=== PATIENT | male | born 1985 | race Caucasian/White ===

== ENCOUNTER 2019-05-14 12:57 | Emergency (ER) | payer SELFPAY ==
[2019-05-14 13:00] VITALS: BP 168/103; PULSE 105; RESP 17; TEMP 37; O2SAT 97; BMI 28.8
--- NOTE | 2019-05-14 13:05 | XR_ITS ---
WS: [id number] XR chest 1V portable [id number] REASON FOR EXAM: cough FINDINGS: The heart and mediastinal interfaces were normal. There is increased markings with peribronchial areas consistent with chronic inflammatory changes. There was no definite pneumonia, pleural effusion, pulmonary edema or mass effect. The hilum and apices are normal. XR/XR chest 1V portable 15902 IMPRESSION: Increased markings in both lung saxena suggesting bronchitis.
--- NOTE | 2019-05-14 13:06 | ECG_ITS ---
Measurements Intervals [place] Rate: 114 P: 59 ME: 104 QRS: 73 QRSD: 89 T: -35 QT: 311 QTc: 428 SINUS TACHYCARDIA WITH SHORT ME INTERVAL MODERATE T-WAVE ABNORMALITY, CONSIDER LATERAL ISCHEMIA [-0.1+ mV T WAVE IN I/a I/aVL/V5/V6] MODERATE T-WAVE ABNORMALITY, CONSIDER INFERIOR ISCHEMIA [-0.1+ mV T WAVE IN II II/aVF] No previous ECG available for comparison Electronically Signed On 05-14-2019 16:58:25 UNDERWRITING ANALYST by Armin Shaffer M.D. [email or web address]
--- NOTE | 2019-05-14 13:08 | ED_ITS ---
Entered by Danyell Sanon, acting as scribe for Jennifer Conner HPI - Chest Pain General: Chief Complaint: Chest Pain Stated Complaint: cp, hands tingling Time Seen by Provider: 05/14/19 13:06 Source: patient Mode of arrival: ambulatory Limitations: no limitations History of Present Illness: HPI narrative: 34 yo Male presents to ED with complaint of chest pain. Pt states that he has had a constant pressure in his chest for a couple of days. Pt states that today he is having a pinching type feeling especially when he gets up and exerts himself. Pt states that if he lays around the pressure pretty well goes away. Pt states that he has been having sweating episodes and had some nausea yesterday. Pt states that he has been having pins and needles tingling in his bilateral forearms. MD complaint: chest pain Onset (ago): day(s) Timing of current episode: episodic and still present Prior episodes: Yes Onset: during rest and during exertion Pain location: substernal Pain radiation: right arm and left arm Quality: other (pressure) Relieving factors: rest Exacerbating factors: exertion and movement Associated symptoms: Reports nausea; Deny abdominal pain, diaphoresis, dyspnea, fever(s), syncope or vomiting Treatment prior to arrival: none Review of Systems General: Reports: other (negative unless marked) Const: Denies: fever, chills, body aches, fatigue, malaise or diaphoresis Eyes: Denies: change in vision or blurry vision ENMT: Denies: throat pain, painful swallowing, hoarseness, ear pain, ear discharge, Change in hearing or nasal discharge Card: Reports: chest pain; Denies: syncope Resp: Denies: shortness of breath, productive cough, non-productive cough, wheezing, coughing up blood or chest congestion GI: Reports: nausea; Denies: abdominal pain or vomiting Musc: Denies: neck pain, back pain, extremity pain, extremity swelling, joint pain, joint swelling, joint warmth or joint stiffness Skin/Breast: Denies: rash, skin tenderness or yellow skin Neuro: Denies: headache, numbness in extremities, weakness in extremities, changes in sensation, lack of coordination, difficulty walking, dizziness, vertigo or confusion Endo: Denies: excessive thirst, tired all the time, cold intolerance, excessive sweating, flushing or hot flashes Nima/Lymph: Denies: easy bruising, easy bleeding, petechiae or enlarged lymph nodes All/Imm: Denies: hives, throat swelling, tongue swelling, facial swelling or acute wheezing PFSH ED PFSH: Social History Smoking and tobacco status: current every day smoker Physical Exam Const: COMMON NORMALS: no apparent distress, oriented x3, no limitations, healthy appearing and well nourished EXAM LIMITATIONS: no altered mental status GENERAL APPEARANCE: cooperative, well kempt and well developed ORIENTATION/CONSCIOUSNESS: Yes awake HENMT: COMMON NORMALS: normocephalic, head/scalp atraumatic, hearing grossly normal bilaterally, external ears normal, EAC's normal, external nose normal and moist oral mucous membranes HEAD & SCALP: normal to inspection, normocephalic and atraumatic FACE & SINUS: normal facial exam and face symmetric NOSE: external nose normal and nares normal EXTERNAL EAR: Yes external ears normal EXTERNAL AUDITORY CANAL: EAC's normal MOUTH: oral and palatal mucosa normal and tongue normal Eye: COMMON NORMALS: PERRL, EOMs intact bilaterally, conjunctivae normal and no scleral icterus GENERAL EYE: normal appearance of both eyes and normal light reflex CONJUNCTIVA: Yes conjunctivae normal SCLERA: sclerae normal CORNEA: Yes corneas normal PUPIL: Yes PERRL DIRECT OPHTHALMOSCOPY: Yes normal light reflex Neck/C-Spine: COMMON NORMALS: full ROM, no lymphadenopathy, supple, no meningeal signs and no JVD GENERAL: Yes normal visual inspection and Yes trachea midline CERVICAL SPINE: Yes cervical ROM normal Chest: COMMONS NORMALS: inspection of chest normal and palpation of chest normal Resp: COMMON NORMALS: normal respiratory effort, no retractions, no use of accessory muscles and clear to auscultation bilaterally EFFORT & INSPECTION: Yes able to speak in complete sentences AUSCULTATION: clear to auscultation bilaterally Cardio: COMMON NORMALS: no JVD, regular rate, regular rhythm, S1 normal heart sound, S2 normal heart sound, no gallops, no clicks, no murmurs and no rub JUGULAR VENOUS DISTENTION: no JVD RATE: regular rate RHYTHM: regular rhythm HEART SOUNDS: S1 normal and S2 normal GI: COMMON NORMALS: soft to palpation, non-tender, no hepatosplenomegaly and no masses INSPECTION: Yes normal to inspection PALPATION: Yes soft and Yes no hepatosplenomegaly : BLADDER/KIDNEY EXAM: Yes no CVA tenderness Back/Pelvis: COMMON NORMALS: no CVA tenderness, thoracic and lumbar spine normal to inspection, no thoracic nor lumbar tenderness and thoraco-lumbar ROM normal Extremity: COMMON NORMALS: normal to inspection, full ROM, normal capillary refill, no joint enlargement, no clubbing, cyanosis or edema and no calf tenderness Neuro: COMMON NORMALS: oriented x3, CN's II-XII intact bilaterally, moves all extremities, no focal motor deficits and no sensory deficits noted MENINGEAL SIGNS: Yes no meningeal signs Psych: COMMON NORMALS: mental status grossly normal, thought process normal, cooperative, affect normal, speech normal and activity/motor behavior normal APPEARANCE: Yes well kempt SPEECH: Yes normal speech THOUGHT PROCESS: normal thought process Skin: COMMON NORMALS: no rashes or lesions noted, skin turgor normal, no jaundice, no petechiae and no mottling GENERAL SKIN EXAM: no rashes or lesions noted and turgor normal Course Consultations: Consultation #1: Dr. White, Virologist Time: 14:30 Vital Signs: Vital signs: Vital Signs Temperature 98.6 F 05/14/19 13:00 Pulse Rate 105 H 05/14/19 13:00 Respiratory Rate 17 05/14/19 13:00 Blood Pressure 168/103 05/14/19 13:00 Pulse Oximetry 97 05/14/19 13:00 MDM - Chest Pain MDM Narrative: Medical decision making narrative: Ck is a 34-year-old male who comes in with constant chest pressure for the past 2 days. Today he came in for pinching in his chest. Patient has no risk factors for heart disease other than being a smoker and a family history. His heart score is a 3. On his third EKG his T waves have improved but not completely normalized. I did review the case with Dr. White who suggested admission because of this. The patient also has an elevated lactate and a chest x-ray that is concerning for bronchitis. The patient states he does have a cough productive of sputum but he assumed that this was just his smoker's cough. As he is refusing to stay at this time I will place him on antibiotics for possible systemic infection, most likely a bronchitis. Dr. White agrees we see no evidence of myopericarditis or pericarditis. I have informed the patient that he is young but because of his significant T wave inversions I recommend he stay in the hospital for stress t esting but he refuses. He understands any type of heart problem could be life- threatening but despite this he wants to be discharged. He agrees to return should his symptoms change or worsen. The patient was warned but he was welcomed to return. The patient did not improve with nitroglycerin here. Lab Data: Attestation: I reviewed the patient's lab results. Labs: Lab Results 05/14/19 05/14/19 05/14/19 Range/Units 13:27 13:27 13:27 WBC 14.9 H (4.0-10.0) 10^3/ uL RBC 5.55 H (4.1-5.3) 10^6/u L Hgb 16.7 H (11.7-16.6) g/dL Hct 49.8 (42.0-52.0) % MCV 89.7 (80-94) fL MCH 30.1 (28.0-34.0) pg MCHC 33.5 (30.0-36.0) g/dL RDW 13.1 (12.1-15.1) % Plt Count 250 (130-400) 10^3/c mm MPV 11.6 H (7.4-10.4) fL Neut % (Auto) 68.2 % Lymph % (Auto) 23.2 % Gallia % (Auto) 6.6 % Eos % (Auto) 0.4 % Baso % (Auto) 0.5 % Neut # (Auto) 10.2 H (1.8-7.7) 10^3/u L Lymph # (Auto) 3.5 (0.8-4.8) 10^3/u L Gall[place] # (Auto) 1.0 H (0.2-0.9) 10^3/u L Eos # (Auto) 0.1 (0.0-0.8) 10^3/u L Baso # (Auto) 0.1 (0.0-0.1) 10^3/u L Nucleated RBC % (a uto) 0 % Nucleated RBCs # 0.0 /100WBC D-Dimer (0-0.59) ug/mIFE U Sodium 136 (136-145) mmol/L Potassium 3.9 (3.5-5.1) mmol/L Chloride 97 L (98-107) mmol/L Carbon Dioxide 24 (22-29) mmol/L Anion Gap 18.9 (5-19) BUN 10 (6-20) mg/dL Creatinine 0.9 (0.7-1.2) mg/dL GFR Calculation 96.6 (90-130) mL/min Glucose 106 (65-115) mg/dL Lactic Acid 3.4 H (0.5-2.2) mmol/L Lactic Acid (Sepsi s) (0.5-2.2) mmol/L Calcium 10.1 (8.5-10.5) mg/dL Magnesium 1.9 (1.7-2.3) mg/dL Total Bilirubin 0.5 (0.15-1.2) mg/dL AST 51 H (0-40) U/L ALT 106 H (0-41) U/L Alkaline Phosphata se 101 (40-130) IU/L Troponin T Baselin e (0-15) ng/mL Troponin T 120 Min [place] (0-15) ng/mL NT-Pro-B Natriuret Pep 5 (0-125) pg/mL Total Protein 7.7 (6.6-8.7) g/dL Albumin 4.7 (3.5-5.2) g/dL Globulin 3.0 (1.3-4.6) g/dL Lipase 12 L (13-60) U/L TSH (0.27-4.20) uIU/ mL Urine Color (Yellow) Urine Appearance (CLEAR) Urine pH (5-7) Ur Specific Gravit y (1.005-1.030) Urine Protein (Negative) Urine Glucose (UA) (Normal) Urine Ketones (Negative) Urine Blood (Negative) Urine Nitrate (Negative) Urine Bilirubin (NEGATIVE) Urine Urobilinogen (Negative) mg/dL Ur Leukocyte Meggan ase (Negative) Urine RBC (0-2) /hpf Urine WBC (0-5) /hpf Ur Squamous Epith Cells (0-5) Urine Bacteria (NONE) Urine Mucus Urine Opiates Scre en (Negative) ng/mL Ur Barbiturates Sc reen (Negative) ng/mL Ur Phencyclidine S crn (Negative) ng/mL Ur Amphetamines Sc reen (Negative) ng/mL U Benzodiazepines Scrn (Negative) ng/mL Urine Cocaine Scre en (Negative) ng/mL U Marijuana (THC) Screen (Negative) ng/mL Ethyl Alcohol < 10 (0-10) mg/dL Hepatitis A IgM Ab (Nonreactive) Hep Bs Antigen (Nonreactive) Hep B Core IgM Ab (Nonreactive) Hepatitis C Antibo dy (Nonreactive) Influenza Type A A g (Negative) POC Influenza B Ag (Negative) 05/14/19 05/14/19 05/14/19 Range/Units 13:27 13:27 13:27 WBC (4.0-10.0) 10^3/ uL RBC (4.1-5.3) 10^6/u L Hgb (11.7-16.6) g/dL Hct (42.0-52.0) % MCV (80-94) fL MCH (28.0-34.0) pg MCHC (30.0-36.0) g/dL RDW (12.1-15.1) % Plt Count (130-400) 10^3/c mm MPV (7.4-10.4) fL Neut % (Auto) % Lymph % (Auto) % [place] % (Auto) % Eos % (Auto) % Baso % (Auto) % Neut # (Auto) (1.8-7.7) 10^3/u L Lymph # (Auto) (0.8-4.8) 10^3/u L Gall[place] # (Auto) (0.2-0.9) 10^3/u L Eos # (Auto) (0.0-0.8) 10^3/u L Baso # (Auto) (0.0-0.1) 10^3/u L Nucleated RBC % (a uto) % Nucleated RBCs # /100WBC D-Dimer <= 0.27 (0-0.59) ug/mIFE U Sodium (136-145) mmol/L Potassium (3.5-5.1) mmol/L Chloride (98-107) mmol/L Carbon Dioxide (22-29) mmol/L Anion Gap (5-19) BUN (6-20) mg/dL Creatinine (0.7-1.2) mg/dL GFR Calculation (90-130) mL/min Glucose (65-115) mg/dL Lactic Acid (0.5-2.2) mmol/L Lactic Acid (Sepsi s) (0.5-2.2) mmol/L Calcium (8.5-10.5) mg/dL Magnesium (1.7-2.3) mg/dL Total Bilirubin (0.15-1.2) mg/dL AST (0-40) U/L ALT (0-41) U/L Alkaline Phosphata se (40-130) IU/L Troponin T Baselin e 6 (0-15) ng/mL Troponin T 120 Min [place] (0-15) ng/mL NT-Pro-B Natriuret Pep (0-125) pg/mL Total Protein (6.6-8.7) g/dL Albumin (3.5-5.2) g/dL Globulin (1.3-4.6) g/dL Lipase (13-60) U/L TSH 2.97 (0.27-4.20) uIU/ mL Urine Color (Yellow) Urine Appearance (CLEAR) Urine pH (5-7) Ur Specific Gravit y (1.005-1.030) Urine Protein (Negative) Urine Glucose (UA) (Normal) Urine Ketones (Negative) Urine Blood (Negative) Urine Nitrate (Negative) Urine Bilirubin (NEGATIVE) Urine Urobilinogen (Negative) mg/dL Ur Leukocyte Meggan ase (Negative) Urine RBC (0-2) /hpf Urine WBC (0-5) /hpf Ur Squamous Epith Cells (0-5) Urine Bacteria (NONE) Urine Mucus Urine Opiates Scre en (Negative) ng/mL Ur Barbiturates Sc reen (Negative) ng/mL Ur Phencyclidine S crn (Negative) ng/mL Ur Amphetamines Sc reen (Negative) ng/mL U Benzodiazepines Scrn (Negative) ng/mL Urine Cocaine Scre en (Negative) ng/mL U Marijuana (THC) Screen (Negative) ng/mL Ethyl Alcohol (0-10) mg/dL Hepatitis A IgM Ab (Nonreactive) Hep Bs Antigen (Nonreactive) Hep B Core IgM Ab (Nonreactive) Hepatitis C Antibo dy (Nonreactive) Influenza Type A A g (Negative) POC Influenza B Ag (Negative) 05/14/19 05/14/19 05/14/19 Range/Units 13:27 13:45 13:45 WBC (4.0-10.0) 10^3/ uL RBC (4.1-5.3) 10^6/u L Hgb (11.7-16.6) g/dL Hct (42.0-52.0) % MCV (80-94) fL MCH (28.0-34.0) pg MCHC (30.0-36.0) g/dL RDW (12.1-15.1) % Plt Count (130-400) 10^3/c mm MPV (7.4-10.4) fL Neut % (Auto) % Lymph % (Auto) % [place] % (Auto) % Eos % (Auto) % Baso % (Auto) % Neut # (Auto) (1.8-7.7) 10^3/u L Lymph # (Auto) (0.8-4.8) 10^3/u L [place] # (Auto) (0.2-0.9) 10^3/u L Eos # (Auto) (0.0-0.8) 10^3/u L Baso # (Auto) (0.0-0.1) 10^3/u L Nucleated RBC % (a uto) % Nucleated RBCs # /100WBC D-Dimer (0-0.59) ug/mIFE U Sodium (136-145) mmol/L Potassium (3.5-5.1) mmol/L Chloride (98-107) mmol/L Carbon Dioxide (22-29) mmol/L Anion Gap (5-19) BUN (6-20) mg/dL Creatinine (0.7-1.2) mg/dL GFR Calculation (90-130) mL/min Glucose (65-115) mg/dL Lactic Acid (0.5-2.2) mmol/L Lactic Acid (Sepsi s) (0.5-2.2) mmol/L Calcium (8.5-10.5) mg/dL Magnesium (1.7-2.3) mg/dL Total Bilirubin (0.15-1.2) mg/dL AST (0-40) U/L ALT (0-41) U/L Alkaline Phosphata se (40-130) IU/L Troponin T Baselin e (0-15) ng/mL Troponin T 120 Min [place] (0-15) ng/mL NT-Pro-B Natriuret Pep (0-125) pg/mL Total Protein (6.6-8.7) g/dL Albumin (3.5-5.2) g/dL Globulin (1.3-4.6) g/dL Lipase (13-60) U/L TSH (0.27-4.20) uIU/ mL Urine Color Yellow (Yellow) Urine Appearance Clear (CLEAR) Urine pH 6 (5-7) Ur Specific Gravit y 1.020 (1.005-1.030) Urine Protein Neg (Negative) Urine Glucose (UA) Norm (Normal) Urine Ketones Negative (Negative) Urine Blood Neg (Negative) Urine Nitrate Negative (Negative) Urine Bilirubin Neg (NEGATIVE) Urine Urobilinogen 1 H (Negative) mg/dL Ur Leukocyte Meggan ase Negative (Negative) Urine RBC None (0-2) /hpf Urine WBC None (0-5) /hpf Ur Squamous Epith Cells 0-4 H (0-5) Urine Bacteria Trace (NONE) Urine Mucus 3+ Urine Opiates Scre en (Negative) ng/mL Ur Barbiturates Sc reen (Negative) ng/mL Ur Phencyclidine S crn (Negative) ng/mL Ur Amphetamines Sc reen (Negative) ng/mL U Benzodiazepines Scrn (Negative) ng/mL Urine Cocaine Scre en (Negative) ng/mL U Marijuana (THC) Screen (Negative) ng/mL Ethyl Alcohol (0-10) mg/dL Hepatitis A IgM Ab Non-reactive (Nonreactive) Hep Bs Antigen Non-reactive (Nonreactive) Hep B Core IgM Ab Non-reactive (Nonreactive) Hepatitis C Antibo dy Non-reactive (Nonreactive) Influenza Type A A g Negative (Negative) POC Influenza B Ag Negative (Negative) 05/14/19 05/14/19 05/14/19 Range/Units 13:45 16:16 16:16 WBC (4.0-10.0) 10^3/ uL RBC (4.1-5.3) 10^6/u L Hgb (11.7-16.6) g/dL Hct (42.0-52.0) % MCV (80-94) fL MCH (28.0-34.0) pg MCHC (30.0-36.0) g/dL RDW (12.1-15.1) % Plt Count (130-400) 10^3/c mm MPV (7.4-10.4) fL Neut % (Auto) % Lymph % (Auto) % [place] % (Auto) % Eos % (Auto) % Baso % (Auto) % Neut # (Auto) (1.8-7.7) 10^3/u L Lymph # (Auto) (0.8-4.8) 10^3/u L [place] # (Auto) (0.2-0.9) 10^3/u L Eos # (Auto) (0.0-0.8) 10^3/u L Baso # (Auto) (0.0-0.1) 10^3/u L Nucleated RBC % (a uto) % Nucleated RBCs # /100WBC D-Dimer (0-0.59) ug/mIFE U Sodium (136-145) mmol/L Potassium (3.5-5.1) mmol/L Chloride (98-107) mmol/L Carbon Dioxide (22-29) mmol/L Anion Gap (5-19) BUN (6-20) mg/dL Creatinine (0.7-1.2) mg/dL GFR Calculation (90-130) mL/min Glucose (65-115) mg/dL Lactic Acid (0.5-2.2) mmol/L Lactic Acid (Sepsi s) 2.3 H (0.5-2.2) mmol/L Calcium (8.5-10.5) mg/dL Magnesium (1.7-2.3) mg/dL Total Bilirubin (0.15-1.2) mg/dL AST (0-40) U/L ALT (0-41) U/L Alkaline Phosphata se (40-130) IU/L Troponin T Baselin e (0-15) ng/mL Troponin T 120 Min [place] 9.15 (0-15) ng/mL NT-Pro-B Natriuret Pep (0-125) pg/mL Total Protein (6.6-8.7) g/dL Albumin (3.5-5.2) g/dL Globulin (1.3-4.6) g/dL Lipase (13-60) U/L TSH (0.27-4.20) uIU/ mL Urine Color (Yellow) Urine Appearance (CLEAR) Urine pH (5-7) Ur Specific Gravit y (1.005-1.030) Urine Protein (Negative) Urine Glucose (UA) (Normal) Urine Ketones (Negative) Urine Blood (Negative) Urine Nitrate (Negative) Urine Bilirubin (NEGATIVE) Urine Urobilinogen (Negative) mg/dL Ur Leukocyte Meggan ase (Negative) Urine RBC (0-2) /hpf Urine WBC (0-5) /hpf Ur Squamous Epith Cells (0-5) Urine Bacteria (NONE) Urine Mucus Urine Opiates Scre en Negative (Negative) ng/mL Ur Barbiturates Sc reen Negative (Negative) ng/mL Ur Phencyclidine S crn Negative (Negative) ng/mL Ur Amphetamines Sc reen Negative (Negative) ng/mL U Benzodiazepines Scrn Negative (Negative) ng/mL Urine Cocaine Scre en Negative (Negative) ng/mL U Marijuana (THC) Screen Positive H (Negative) ng/mL Ethyl Alcohol (0-10) mg/dL Hepatitis A IgM Ab (Nonreactive) Hep Bs Antigen (Nonreactive) Hep B Core IgM Ab (Nonreactive) Hepatitis C Antibo dy (Nonreactive) Influenza Type A A g (Negative) POC Influenza B Ag (Negative) Imaging Data^: CXR: Radiologist's impression: [place] [address] XRay Report Signed Patient: Ck Kee #: [id number] : 1985Acct#:[id number] Age/Sex: 34 / MADM Date: 05/14/19 Loc: ERRoom/Bed: Attending Dr: Ordering Provider/Ordering MD: Jennifer Conner DO Date of Service: 05/14/19 Procedure(s): XR chest 1V portable 10022 Accession Number(s): [id number] Report Number: [id number] WS: [id number] XR chest 1V portable 17075 REASON FOR EXAM: cough FINDINGS: The heart and mediastinal interfaces were normal. There is increased markings with peribronchial areas consistent with chronic inflammatory changes. There was no definite pneumonia, pleural effusion, pulmonary edema or mass effect. The hilum and apices are normal. XR/XR chest 1V portable [id number] IMPRESSION: Increased markings in both lung saxena suggesting bronchitis. Dictated By:Sae Massey DO Signed By:Sae Massey DOSigned Date/Time:05/14/19 1326 DD/ 1325 US abdomen: Radiologist's impression: [facility] [address] [place] [address] Ultrasound Report Signed Patient: Ck Kee #: [id number] : 1985Acct#:[id number] Age/Sex: 34 / MADM Date: 05/14/19 Loc: ERRoom/Bed: Attending Dr: Ordering Provider/Ordering MD: Jennifer Conner DO Date of Service: 05/14/19 Procedure(s): US abdomen complete* 01049 Accession Number(s): [id number] Report Number: [id number] WS: [id number] ABDOMINAL ULTRASOUND REASON FOR EXAM: Abdominal Pain TECHNIQUE: Grayscale and Doppler ultrasound examination of the abdomen. FINDINGS: Pancreas: Appears to be within normal limits. Abdominal aorta and IVC: .Appears normal. Liver: Liver measures 14.3 cm in length. Fatty infiltration of the liver seen. Hepatopedal circulation. Calcification of the hepatic ligament is noted. No significance. Gallbladder: Gallbladder wall thickness measures 2.1 mm. No stones noted. The bile duct measures 0.47 cm. Left kidney: Left kidney measures 11.5 cm x 4.2 cm x 5.1 cm. Left kidney cortex measures 1.2 cm. No hydronephrosis or stones. Right kidney: Right kidney measures 13.1 cm x 4.7 cm x 4.6 cm. Right kidney cortex measures 1.1 cm. No hydronephrosis or stones. Spleen: Spleen measures 9.9 cm no masses in the spleen. US/US abdomen complete* [id number] IMPRESSION: Fatty infiltration of the liver. Dictated By:Sae Massey DO Signed By:Sae Massey DOSigned Date/Time:05/14/19 1519 DD/ 1503 EKG Data^: EKG 1: Attestation: I personally reviewed and interpreted this EKG as follows: EKG interpretation date: 05/14/19 EKG interpretation time: 13:05 Interpretation: Sinus rhythm with short HI interval at 114 beats a minute, T wave inversions in 2, 3, aVF and V4 through V6. No old for comparison. EKG 2: Attestation: I personally reviewed and interpreted this EKG as follows: EKG interpretation date: 05/14/19 EKG interpretation time: 13:52 Interpretation: Normal sinus rhythm at 90 beats a minute, short HI interval, normal axis, T wave inversions in 2, 3, aVF, V4 and V5 similar but improved from previous. EKG 3: Attestation: I personally reviewed and interpreted this EKG as follows: EKG interpretation date: 05/14/19 EKG interpretation time: 15:34 Interpretation: Normal sinus rhythm at 81 beats a minute, short HI interval, normal axis, T wave inversions in 3 and aVF. Improved from previous. Discharge Plan Discharge Patient Disposition: Home, Self-Care Clinical Impression: Chest pain Qualifiers: Chest pain type: unspecified Qualified Code(s): R07.9 - Chest pain, unspecified Condition: Stable Prescriptions: New aspirin 325 mg tablet 325 mg PO DAILY Qty: 30 RF: 0 Levaquin 750 mg tablet 750 mg PO DAILY 7 Days RF: 0 No Action ibuprofen 200 mg Tablet 800 mg PO Q4H PRN (Reason: Pain) RF: 0 Discharge Orders: Discharge Order (Routine); Ordered 05/14/19 Ordered By: Jennifer Conner Referrals: Celine White MD [Physician] - 1-3 days Discharge Diet: Advance as tolerated Discharge Activity: Increase activity as tolerated Patient Instructions: Chest Pain (ED) Activity Restrictions/Additional Instructions: You're leaving AGAINST MEDICAL ADVICE and are at risk for or severe permanent disability by doing so. You are more than welcome to return at any time for recheck and for further evaluation and care suture change you change your mind. Be certain to take your antibiotics as I have prescribed and push oral fluids. Return to the ER for return of your chest pain, worsening cough, you faint or nearly faint, or you simply change your mind and wish to have further evaluation and care. Coding Level of Care Code ED Strapping Machine Operator for Chg Fwd Exam Comprehensive The documentation recorded by the Talita terry Carmen, accurately reflects the service I personally performed and the decisions made by me, Jennifer Conner May 14, 2019 12:57
[2019-05-14 13:34] LABS: Basophils # 0.1 10^3/uL (0.0-0.1); Basophils % 0.5 %; Eosinophils # 0.1 10^3/uL (0.0-0.8); Eosinophils % 0.4 %; Hematocrit 49.8 % (42.0-52.0); Hemoglobin 16.7 g/dL (11.7-16.6); Lymphocytes # 3.5 10^3/uL (0.8-4.8); Lymphocytes % 23.2 %; Mean Corpuscular HGB Conc 33.5 g/dL (30.0-36.0); Mean Corpuscular Hemoglobin 30.1 pg (28.0-34.0); Mean Corpuscular Volume 89.7 fL (80-94); Mean Platelet Volume 11.6 fL (7.4-10.4); Monocytes % 6.6 %; Neutrophils # 10.2 10^3/uL (1.8-7.7); Neutrophils % 68.2 %; Nucleated Red Blood Cells % 0 %; Platelet Count 250 10^3/cmm (130-400); Red Blood Count 5.55 10^6/uL (4.1-5.3); Red Cell Distribution Width 13.1 % (12.1-15.1); White Blood Count 14.9 10^3/uL (4.0-10.0)
[2019-05-14 13:47] LABS: D Dimer <= 0.27 ug/mIFEU (0-0.59)
[2019-05-14 13:50] LABS: Lactic Sepsis W/Reflex 3.4 mmol/L (0.5-2.2)
[2019-05-14 13:52] LABS: Troponin(5th) Baseline 6 ng/mL (0-15)
[2019-05-14 14:00] LABS: Alanine Aminotransferase 106 U/L (0-41); Albumin Level 4.7 g/dL (3.5-5.2); Alcohol Level < 10 mg/dL (0-10); Alkaline Phosphatase 101 IU/L (40-130); Anion Gap 18.9 (5-19); Aspartate Amino Transferase 51 U/L (0-40); Blood Urea Nitrogen 10 mg/dL (6-20); Calcium 10.1 mg/dL (8.5-10.5); Carbon Dioxide 24 mmol/L (22-29); Chloride 97 mmol/L (98-107); Glomerular Filtration Rate 96.6 mL/min (90-130); Glucose 106 mg/dL (65-115); Lipase 12 U/L (13-60); Magnesium 1.9 mg/dL (1.7-2.3); NT Pro B Type Natriuretic Pept 5 pg/mL (0-125); Potassium 3.9 mmol/L (3.5-5.1); Sodium 136 mmol/L (136-145); Total Bilirubin 0.5 mg/dL (0.15-1.2); Total Protein 7.7 g/dL (6.6-8.7)
[2019-05-14] MEDS: nitroglycerin 0.4 mg sublingual Tablet SUBLINGUAL ×2 (14:11→14:20)
[2019-05-14] MEDS: aspirin 325 mg Tablet PO (14:11)
[2019-05-14] MEDS: sodium chloride 0.9% 1,000 ML 999 ML IV (14:12)
--- NOTE | 2019-05-14 14:14 | US_ITS ---
WS: [id number] ABDOMINAL ULTRASOUND REASON FOR EXAM: Abdominal Pain TECHNIQUE: Grayscale and Doppler ultrasound examination of the abdomen. FINDINGS: Pancreas: Appears to be within normal limits. Abdominal aorta and IVC: .Appears normal. Liver: Liver measures 14.3 cm in length. Fatty infiltration of the liver seen. Hepatopedal circulatio n. Calcification of the hepatic ligament is noted. No significance. Gallbladder: Gallbladder wall thickness measures 2.1 mm. No stones noted. The bile duct measures 0.47 cm. Left kidney: Left kidney measures 11.5 cm x 4.2 cm x 5.1 cm. Left kidney cortex measures 1.2 cm. No h ydronephrosis or stones. Right kidney: Right kidney measures 13.1 cm x 4.7 cm x 4.6 cm. Right kidney cortex measures 1.1 cm. N o hydronephrosis or stones. Spleen: Spleen measures 9.9 cm no masses in the spleen. US/US abdomen complete* [id number] IMPRESSION: Fatty infiltration of the liver.
[2019-05-14 14:21] LABS: Thyroid Stimulating Hormone 2.97 uIU/mL (0.27-4.20)
[2019-05-14 14:28] LABS: Bilirubin Urine Neg (NEGATIVE); Blood Urine Neg (Negative); Glucose Urine UA Norm (Normal); Ketones Urine Negative (Negative); Leukocyte Esterase Urine Negative (Negative); Nitrate Urine Negative (Negative); Protein Urine Neg (Negative); Urine Appearance Clear (CLEAR); Urine Color Yellow (Yellow); Urobilinogen Urine 1 mg/dL (Negative); pH Urine 6 (5-7)
[2019-05-14 14:35] LABS: Add Urine Culture? No; Bacteria Urine TRACE; Mucus Urine 3+; Squamous Epithelial Cell Urine 0-4 (0-5)
[2019-05-14 14:36] LABS: Amphetamines Screen Urine Negative (Negative); Barbiturates Screen Urine Negative (Negative); Benzodiazepines Screen Urine Negative (Negative); Cocaine Screen Urine Negative (Negative); Opiate Screen Urine Negative (Negative); PCP Screen Urine Negative (Negative); THC Screen Urine Positive (Negative)
[2019-05-14 14:41] LABS: Influenza A by IFA Negative (Negative); Influenza B by IFA Negative (Negative)
--- NOTE | 2019-05-14 15:06 | ECG_ITS ---
Measurements Intervals [place] Rate: 81 P: 25 CA: 133 QRS: 69 QRSD: 94 T: 0 QT: 364 QTc: 423 SINUS RHYTHM NONSPECIFIC T-WAVE ABNORMALITY No previous ECG available for comparison Electronically Signed On 05-14-2019 17:04:36 FIGURINE MAKER by Armin Shaffer M.D. [id number]
[2019-05-14 15:19] LABS: Reflex Lactate Order REFLEX LACTIC ORDERD
[2019-05-14] MEDS: piperacillin-tazobactam 3.375 GM in sodium chloride 0.9% (plus) 50 ML IV (15:53)
[2019-05-14 16:30] LABS: Hepatitis A Antibody IgM. Non-Reactive (Nonreactive); Hepatitis B Core IgM Non-Reactive (Nonreactive); Hepatitis B Surface Antigen. Non-Reactive (Nonreactive); Hepatitis C Virus Antibody Non-Reactive (Nonreactive)
[2019-05-14 16:38] LABS: Lactic Acid level (Lactate) 2.3 mmol/L (0.5-2.2)
[2019-05-14 16:40] LABS: Troponin 5 2HR 9.15 ng/mL (0-15); Troponin 5 2HR Delta 3.15 ABS# (0-10)
[2019-05-14 17:28] VITALS: BP 149/78; PULSE 78; RESP 18; O2SAT 96
--- NOTE | 2019-05-14 19:06 | ECG_ITS ---
Measurements Intervals [place] Rate: 90 P: 57 MS: 112 QRS: 72 QRSD: 91 T: 10 QT: 332 QTc: 407 SINUS RHYTHM WITH SHORT MS INTERVAL NONSPECIFIC T-WAVE ABNORMALITY No previous ECG available for comparison Electronically Signed On 05-14-2019 17:04:33 INFORMATION SECURITY ENGINEER by Armin Shaffer M.D. [email or web address]
--- NOTE | 2019-05-15 11:08 | DCPLANNER ---
global account manager had message to schedule a follow up appointment for patient with [facility], Dr. White. global account manager called [facility], spoke with Candi. A follow up appointment is scheduled for Sunday, May 19, 2019 at 9:[address] White, clinic will call patient with appointment information.
--- NOTE | 2019-05-20 15:35 | DCPLANNER ---
Patient did not attend appointment scheduled for 05.18.19 with [facility].
== END 2019-05-14 17:29 | disposition home or self-care (01) ==
PROVIDERS: Emergency Provider Emergency Medicine
DX: R07.9 Chest pain, unspecified (principal); F17.210 Nicotine dependence, cigarettes, uncomplicated; K76.0 Fatty (change of) liver, not elsewhere classified
CPT/HCPCS: 12345; 36415; 71045; 76700; 80053; 80074; 80307; 81001; 83605; 83690; 83735; 83880; 84443; 84484; 85025; 85378; 87804; 93005; 96360; 96361; 99283; 99284; A9270; J2543; J7030